=== PATIENT | female | born 1985 ===

== ENCOUNTER 2022-06-28 09:13 | Outpatient (CLI) | payer OTHER ==
[~2022-06-28 09:13] MED LIST: IMODIUM A-D2 MG PO
== END 2022-06-28 11:02 | disposition home or self-care (01) ==
LOC: PRENATAL 09:13
PROVIDERS: ATTEND Obstetrics & Gynecology Maternal & Fetal Medicine
DX: O35.9XX0 Maternal care for (suspected) fetal abnormality and damage, unspecified, not applicable or unspecified (principal); O35.3XX0 Maternal care for (suspected) damage to fetus from viral disease in mother, not applicable or unspecified; O09.529 Supervision of elderly multigravida, unspecified trimester; O99.280 Endocrine, nutritional and metabolic diseases complicating pregnancy, unspecified trimester; Z3A.20 20 weeks gestation of pregnancy

== ENCOUNTER 2022-09-23 09:14 | Outpatient (CLI) | payer OTHER | END 2022-09-23 10:25 | disposition home or self-care (01) | LOC: PRENATAL 09:14 | PROVIDERS: ATTEND Obstetrics & Gynecology Maternal & Fetal Medicine | DX: O26.849 Uterine size-date discrepancy, unspecified trimester (principal); O36.8199 Decreased fetal movements, unspecified trimester, other fetus; O09.529 Supervision of elderly multigravida, unspecified trimester; O34.219 Maternal care for unspecified type scar from previous cesarean delivery; O99.280 Endocrine, nutritional and metabolic diseases complicating pregnancy, unspecified trimester; Z3A.32 32 weeks gestation of pregnancy ==

== ENCOUNTER 2022-11-06 15:54 | Inpatient (IN) | payer OTHER ==
[~2022-11-06] VITALS: Ht 149.9 cm; Wt 4.1 kg
[2022-11-07] MEDS ORDERED: LEVOTHYROXINE25 MCG PO (12:48)
[2022-11-07] MEDS ORDERED: PRENATABS FA T1 EACH PO (12:48)
[2022-11-11] MEDS ORDERED: OMEGA-31000 MG PO (06:26)
[2022-11-11] MEDS ORDERED: CHILDREN'S ASPI81 MG (06:27)
== END 2022-11-14 14:01 | disposition home or self-care (01) | DRG 785 ==
LOC: O/R 11-11 05:56 → OB/GYN 11-11 07:00
PROVIDERS: ADMIT Obstetrics & Gynecology; ATTEND Obstetrics & Gynecology
PROC: 0UB70ZZ Excision of Bilateral Fallopian Tubes, Open Approach (ICD-10-PCS; 2022-11-11)
PROC: 4A1HXCZ Monitoring of Products of Conception, Cardiac Rate, External Approach (ICD-10-PCS; 2022-11-11)
PROC: 10D00Z1 Extraction of Products of Conception, Low, Open Approach (ICD-10-PCS; principal; 2022-11-11 07:00)
DX: O36.63X0 Maternal care for excessive fetal growth, third trimester, not applicable or unspecified (principal); O99.824 Streptococcus B carrier state complicating childbirth; O34.211 Maternal care for low transverse scar from previous cesarean delivery; Z3A.39 39 weeks gestation of pregnancy; Z37.0 Single live birth; Z30.2 Encounter for sterilization; Z20.822 Contact with and (suspected) exposure to COVID-19